=== PATIENT | female | born 1940 | race Caucasian/White ===

== ENCOUNTER 2019-08-27 08:56 | Emergency (ER) | payer MEDICARE, SELFPAY ==
[2019-08-27 08:56] VITALS: BP 197/105; PULSE 83; RESP 16; TEMP 36.9; O2SAT 95; BMI 41.8
--- NOTE | 2019-08-27 09:23 | ED.VIS.INJ ---
History of Present Illness Chief Complaint: Fall Detail of Chief Complaint: Fell because she lost her balance injuring her right shoulder Informant: Patient Onset: Today Mechanism/Context: Blunt Injury, Fall Quality of Pain: Dull, Aching Location: Proximal right shoulder Current Severity: Mild Maximum Severity: Severe Worsened by: Any type of movement Relieved by: Nothing Associated Symptoms: Loss of function. Negative for: Parasthesias, Weakness, Inability to ambulate, Loss of consciousness, Amnesia Narrative: Is an 79-year-old woman who lost her balance. She fell onto her right side. She states this occurred at 0230. She denied head trauma. Denies neck pain. Denies paresthesia, anesthesia medics presently the time of the fall. She denies ocular, visual auditory symptoms. She denies nausea vomiting. She is not on an anticoagulant. She has no other complaints. Tetanus Immunization: 5-10 years Prior similar symptoms: No Recent Illness/Hospitalization: No - Past Medical History (1) Hypertension Status: Chronic (2) Type 2 diabetes mellitus Status: Acute Past Medical History - Allergies and Home Meds Allergies/Adverse Reactions: Allergies Penicillins [PCN] Allergy (Verified 08/27/19 09:06) Hives Primary Care Physician: Nettie Velázquez DO [Primary Care Provider] - Prior records reviewed: Yes Surgical History: noncontributory Lives: Alone Smoking Status: Never smoker Alcohol: None Drugs: None Review of Systems General: Denies: Chills, Fever, Sweats Eyes: Denies: Visual changes - bilaterally, Blurred Vision - bilaterally, Diplopia ENT: Reports: Bilateral ear pain, - - Nuys decreased hearing or ringing in her ears. Denies: Rhinorrhea, Sore throat Cardiovascular: Denies: Chest pain, Palpitations Respiratory: Denies: Dyspnea, Cough, Dyspnea on exertion Gastrointestinal: Denies: Abdominal pain, Nausea, Vomiting, Diarrhea, Melena, Hematochezia Genitourinary: Denies: Dysuria, Hematuria, Frequency Musculoskeletal: Reports: Swelling, Extremity Pain. Denies: Myalgias, Arthralgias, Neck pain, Back pain, -, - Skin: Denies: Rash, Wounds Neurological: Denies: Headache, Weakness, Numbness Hematologic: Denies: Easy bruising, Easy bleeding Physical Exam Vital Signs/Narrative: Vital Signs Temp Pulse Resp BP Pulse Ox 08/27/19 08:56 98.5 F 83 16 197/105 H 95 Inital Vital Signs reviewed: Yes General: Well nourished, Well developed, Obese Head: Normocephalic, Atraumatic, - - No clinical findings of basilar skull fracture. Negative for: Trauma, Tenderness Eyes: Perrl, EOMI. Negative for: Pale conjunctiva, Scleral icterus ENT: TM's clear, No hemotympanum or drainage, No trauma. Negative for: Hemotympanum, Otorrhea, Nasal trauma, Nasal septal hematoma Neck: Nontender, Full ROM. Negative for: Spinal Tenderness, Paraspinal Tenderness Cardiovascular: Regular rate, Regular rhythm, No murmurs. Negative for: Normal S1, Normal S2 Respiratory: No distress, CTA bilaterally, Chest nontender Abdomen: Soft, Nontender, Nondistended, Normal bowel sounds Rectal: Deferred Back: Nontender Extremeties: Right shoulder is swollen. This pain the patient over the proximal right humerus. There is no pain the patient over the clavicle or AC joint. Axillary, median, radial and ulnar function intact. Radial pulses palpable. There is no pain the patient over the lateral medial epicondyle. Is no pain the patient of olecranon process radial head. Is no pain the patient of the distal radius or ulna, carpal bones, metacarpal bones or phalanges. Skin: Normal color, No rash Neurological: Alert, Oriented x3, Cranial nerves II-XII grossly intact, Normal Strength, Normal Sensation Psychological: Normal affect - Glascow Coma Scale Eye Opening: Spontaneous Motor: Obeys Commands Verbal: Oriented Coma Scale Total: 15 Diagnostic/Tx/Re-eval Chest X-Ray - ED: 2 View, Read by ED Physician, - - Your x-ray of the right proximal humerus/shoulder reveals a nondisplaced fracture of the proximal humerus at the surgical neck. - Medical Decision Making X-ray was obtained to evaluate for fracture versus contusion. With inability to move if there is no fracture patient has a rotator cuff injury. She was medicated with IV medication for her pain. Was discussed with orthopedics on-call Dr. Sebastien Pop. Agrees with treatment and would like to see patient on Thursday. ED Disposition - Plan for ED Patient: Disposition: Home or Assisted Living Diagnosis: Fracture of proximal end of right humerus Instructions: FRACTURE, Shoulder Prescriptions: Hydrocodone Bitart/Apap 5-325 [Salyer 5MG-325MG] 1 tablet PO Q6H PRN PRN 3 Days #10 tablet PRN Reason: Pain Transmission Status: Sent to [facility] Referrals: Nettie Velázquez DO [Primary Care Provider] - Sebastien Pop DO [STAFF PHYSICIAN] - 08/29/19 Additional Instructions: Move arm from sling and swath every other hour to do pendulum exercises as demonstrated
[2019-08-27] MEDS: Morphine 4 MG/ML Syringe IV (09:38)
[2019-08-27] MEDS: Ondansetron 4 MG/2 ML Vial IV (09:38)
--- NOTE | 2019-08-27 10:00 | RAD_ITS ---
STUDY: X-RAY - RIGHT SHOULDER REASON FOR EXAM: Female, 79 years old. 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 COMPARISON: None. FINDINGS: There is severe degenerative arthrosis of the glenohumeral articulation. There is degenerative arthrosis of the acromioclavicular joint without inferior osseous spur formation. Normal acromion. There is a cortical step-off of the lateral humeral neck compatible with a nondisplaced fracture. The soft tissue structures are unremarkable. Normal visualized pulmonary apex. RAD/Shoulder min 2 Views IMPRESSION: 1. Suspect nondisplaced fracture of the right humeral neck. 2. Degenerative changes. Electronically Signed: Omi Pat MD ([place]) at 10:16 EST , Service support ,
== END 2019-08-27 10:51 | disposition home or self-care (01) ==
PROVIDERS: Emergency Provider Emergency Medicine; PCP Internal Medicine
DX: S42.214A Unspecified nondisplaced fracture of surgical neck of right humerus, initial encounter for closed fracture (principal); W19.XXXA Unspecified fall, initial encounter; Y93.9 Activity, unspecified; I10 Essential (primary) hypertension; E11.9 Type 2 diabetes mellitus without complications; E66.9 Obesity, unspecified; Z68.41 Body mass index [BMI] 40.0-44.9, adult; Z79.84 Long term (current) use of oral hypoglycemic drugs
CPT/HCPCS: 73030; 96374; 96375; 99285; A4216; J2405

== ENCOUNTER → 2019-08-31 13:13 | Outpatient (CLI) | payer MEDICARE, SELFPAY ==
[2019-08-27 08:56] VITALS: BMI 41.8
--- NOTE | 2019-08-31 13:14 | RAD_ITS ---
STUDY: X-RAY - RIGHT SHOULDER REASON FOR EXAM: Fracture, Grashey view. TECHNIQUE: A single view of the shoulder. COMPARISON: Radiographs 08/27/2019. FINDINGS: Unremarkable glenohumeral articulation although the Grashey view is suboptimal and not parallel to the glenoid margin. There is mild acromioclavicular arthrosis. Normal acromion. There is a fracture of the surgical neck of the humerus extending into the greater tuberosity. The soft tissue structures are unremarkable. Normal visualized pulmonary apex. RAD/Shoulder One View IMPRESSION: Proximal humeral fracture. Mild acromioclavicular arthrosis. Electronically Signed: Jj Swain MD at 15:28 EST Tel , Service support ,
== END ==
PROVIDERS: PCP Internal Medicine; Referring Provider Orthopaedic Surgery; Visit Provider Orthopaedic Surgery
DX: M25.511 Pain in right shoulder (principal)
CPT/HCPCS: 73020

== ENCOUNTER → 2019-08-31 15:00 | Outpatient (CLI) | payer MEDICARE, SELFPAY ==
[2019-08-31 13:19] VITALS: BMI 41.8
--- NOTE | 2019-08-31 15:03 | VDLE_ITS ---
Reason For Study: Swelling RIGHT GSV is normal. CFV is compressible, spontaneous, phasic, competent and demonstrates normal augmentation. FV is compressible, spontaneous, phasic, competent and demonstrates normal augmentation. POP V is compressible, spontaneous, phasic, competent and demonstrates normal augmentation. T/P Trunk is compressible. RT PerV is compressible. Rt PTV is dilated and non compressible consistent with acute DVT. Procedure Exam performed in department. Pt sent to pharmacy for perscription blood thinner. A preliminary report was called and/or faxed to Dr. Pop. Interpretation Summary Right great saphenous vein appears patent and compressible segmentally. Acute deep venous thrombosis right posterior tibial vein Ordering Physician: Sebastien Pop Referring Physician: Nettie Velázquez Performed By: Yolette Barnes, ALMACS, RVT
== END ==
PROVIDERS: PCP Internal Medicine; Referring Provider Orthopaedic Surgery; Visit Provider Orthopaedic Surgery
DX: M79.89 Other specified soft tissue disorders (principal); M25.511 Pain in right shoulder
CPT/HCPCS: 73020; 93971

== ENCOUNTER → 2019-09-26 13:23 | Outpatient (CLI) | payer MEDICARE, SELFPAY ==
[2019-08-31 13:19] VITALS: BMI 41.8
--- NOTE | 2019-09-26 13:24 | RAD_ITS ---
STUDY: X-RAY - RIGHT HUMERUS REASON FOR EXAM: Female, 79 years old. HX OF recent fx TECHNIQUE: 2 view(s) of the humerus. COMPARISON: None. FINDINGS: There is diffuse demineralization of the humerus. Comminuted fracture involving the right humeral neck and head with evidence of mild separation along the fracture line. There is no demonstrated soft tissue abnormality. Alignment is anatomical. RAD/Humerus min 2 Views IMPRESSION: Right humeral neck and head fracture is described. Underlying osteopenia, remainder of the humerus unremarkable. Electronically Signed: Omayra Angeles MD at 0:54 EDT , Service support ,
== END ==
PROVIDERS: PCP Internal Medicine; Referring Provider Orthopaedic Surgery; Visit Provider Orthopaedic Surgery
DX: S42.301A Unspecified fracture of shaft of humerus, right arm, initial encounter for closed fracture (principal)
CPT/HCPCS: 73060

== ENCOUNTER → 2019-11-09 10:23 | Outpatient (CLI) | payer MEDICARE, SELFPAY ==
[2019-09-26 13:28] VITALS: BMI 41.8
--- NOTE | 2019-11-09 10:27 | RAD_ITS ---
STUDY: X-RAY - RIGHT SHOULDER REASON FOR EXAM: Female, 79 years old. HUMERAL FX FOLLOW UP TECHNIQUE: 4 view(s) of the shoulder. COMPARISON: Comparison is made with prior examination dated September 26, 2019. FINDINGS: There is moderate degenerative arthrosis of the glenohumeral articulation. There is hypertrophic osteoarthrosis of the acromioclavicular joint with inferior osseous spur formation. Normal acromion. Healing transverse fracture of the surgical neck of the humerus. The position is maintained. The soft tissue structures are unremarkable. Normal visualized pulmonary apex. RAD/Shoulder min 2 Views IMPRESSION: Healing fracture of the surgical neck of the humerus. Positioning is maintained. Electronically Signed: Nikolai Huang, at 13:36 EDT , Service support ,
== END ==
PROVIDERS: PCP Internal Medicine; Referring Provider Orthopaedic Surgery; Visit Provider Orthopaedic Surgery
DX: S42.301A Unspecified fracture of shaft of humerus, right arm, initial encounter for closed fracture (principal)
CPT/HCPCS: 73030

== ENCOUNTER → 2019-11-21 10:44 | Outpatient (CLI) | payer MEDICARE, SELFPAY ==
[2019-11-09 10:59] VITALS: BMI 41.8
--- NOTE | 2019-11-21 10:53 | VDLE_ITS ---
Reason For Study: F/U DVT RIGHT GSV is normal. CFV is compressible, spontaneous, phasic, competent and demonstrates normal augmentation. FV is compressible, spontaneous, phasic, competent and demonstrates normal augmentation. POP V is compressible, spontaneous, phasic, competent and demonstrates normal augmentation. T/P Trunk is compressible. PTV is compressible. RT PerV is compressible. Procedure Exam performed in department. Compared to study done on 08/31/2019. A preliminary report was called and/or faxed to [facility]. Interpretation Summary There is no evidence of right lower extremity deep vein thrombosis. Right great saphenous vein appears patent and compressible segmentally. Resolution of posterior tibial deep venous thrombosis previously noted August 31, 2019 Ordering Physician: Nettie Velázquez Referring Physician: Nettie Velázquez Performed By: Jazmine Gonzáles RVT
== END ==
PROVIDERS: PCP Internal Medicine; Referring Provider Internal Medicine; Visit Provider Internal Medicine
DX: Z86.718 Personal history of other venous thrombosis and embolism (principal)
CPT/HCPCS: 93971

== ENCOUNTER → 2023-06-14 | Outpatient (CLI) | payer MEDICARE, SELFPAY ==
[2023-06-14 11:16] LABS: Bacteria 0 SEEN /hpf (None Seen); Mucous, Urine 0 SEEN /hpf (<or=2+); Red Blood Cells-Urine 0 SEEN /hpf (0-5)
[2023-06-14 11:36] LABS: Color, Urine Yellow (Yellow); Glucose, Dipstick 1000 mg/dl (Normal); Ketone-Dipstick Negative (Negative); Leukocyte Esterase-Dipstick Negative /ul (Negative); Nitrite-Dipstick Negative (Negative); Occult Blood-Urine 10 /ul (Negative); Protein-Dipstick Negative (Negative); Specific Gravity, Urine 1.015 (1.002-1.030); Urine Bilirubin Dipstick Negative (Negative); Urine Clarity Clear (Clear); Urine Urobilinogen Normal (Normal)
[2023-06-14 11:49] LABS: Squamous Epithelial Cells - UA 0-5 SEEN /hpf (5-10); White Blood Cells 0-5 SEEN /hpf (0-5); Yeast-Urine 1+ /hpf (None Seen)
== END | disposition home or self-care (01) ==
LOC: LABSPEC 11:13
PROVIDERS: PCP Internal Medicine; Visit Provider Family Medicine
DX: Z00.00 Encounter for general adult medical examination without abnormal findings (principal)
CPT/HCPCS: 81001